=== PATIENT | female | born 1985 | race Caucasian/White ===

== ENCOUNTER 2024-02-29 15:35 | Emergency (ER) | payer OTHER ==
[~2024-02-29] VITALS: Ht 154.9 cm; Wt 61.8 kg
[2024-02-29 15:43] VITALS: TEMP 98.3
[2024-02-29] MEDS ORDERED: Ketorolac 30 MG/ML VIAL IM ONE (17:15)
[2024-02-29] MEDS ORDERED: NAPROSYN500 MG PO (17:16)
[2024-02-29 17:47] VITALS: BP 116/72; PULSE 86
== END 2024-02-29 17:48 | disposition home or self-care (01) ==
LOC: COL.ER 15:35
DX: N64.4 Mastodynia (principal)
CPT/HCPCS: J1885